=== PATIENT | female | born 1985 ===

== ENCOUNTER 2018-05-11 23:30 | Inpatient (IN) | payer OTHER ==
--- NOTE | 2018-05-12 00:33 | OBADHP ---
Datetime: 05/12/2018 00:26 Admit Comment, IP Provider: A/P: 32 yo at 39 wks with EDC 05/19/18 SROM - stable, afebrile - GBS + - for Louise - + pooling and nitrazine - expectant mgmt FHR - Baseline A Provider: 140 Amniotic Fluid Color, Provider: Clear Membranes, Provider: Ruptured Contraction Comments Provider: 4-5 Pool Provider: Positive Nitrazine Provider: Positive Vital Signs Provider: Reviewed; Within Normal Limits IP Chief Complaint: Uterine contractions; Suspected ruptured membranes NICHD Variability Prov Fetus A: Moderate 6-25bpm NICHD Accel Fetus A IP Provider: 15X15 FHR Category Provider Fetus A: Category I NICHD Decel Fetus A IP Provider: None Dilatation, Provider: 2 Effacement, Provider: 80 Station, Provider: 0 EGA AdmitDate IP: 39.0 IP Adm Impression: Ruptured Membranes IP Admit Plan: Admit to unit; Initiate labor protocol
[2018-05-12 00:35] VITALS: BMI 20.3
[2018-05-12] MEDS ORDERED: Lactated Ringer's 1,000 ML IV ONE (00:46)
[2018-05-12] MEDS: Lactated Ringer's 1,000 ML IV SCH ×2 (01:00→10:50)
[2018-05-12 01:09] LABS: BASO % 0.3 % (0.0-2.0); EOS # 0.3 K/uL (0.0-0.7); EOS % 3.2 % (0.0-4.0); HEMOGLOBIN 12.4 g/dL (11.0-16.0); LYMPH # 1.9 K/uL (1.0-4.3); LYMPH % 17.9 % (20.0-40.0); MEAN CELL VOLUME 87.1 fL (81.0-99.0); MEAN CORPUSCULAR HEMOGLOBIN 28.7 pg (27.0-31.0); MEAN PLATELET VOLUME 10.9 fL (7.2-11.7); MONO # 0.9 K/uL (0.0-0.8); MONO % 8.4 % (0.0-10.0); NEUT # 7.3 K/uL (1.8-7.0); NEUT % 70.2 % (50.0-75.0); RBC 4.33 Mil/uL (3.80-5.20); RED CELL DISTRIBUTION WIDTH 14.6 % (11.5-14.5); WHITE BLOOD COUNT 10.4 K/uL (4.8-10.8)
[2018-05-12] MEDS ORDERED: Penicillin G 5 Million Unit Vial IVPB ONE (01:30)
[2018-05-12] MEDS ORDERED: Oxytocin 30 UNIT 30 UNITS/500 ML BAG IV SCH (09:00)
[2018-05-12] MEDS ORDERED: Oxytocin 30 UNIT 30 UNITS/500 ML BAG IV ONE (09:28)
[2018-05-12] MEDS ORDERED: Nalbuphine HCL 10 mg/ml Ampule IVP ONE (09:29)
[2018-05-12] MEDS ORDERED: DiphenhydrAMINE 50 mg/ml Inj IM ONE (09:30)
[2018-05-12] MEDS ORDERED: Nalbuphine HCL 10 mg/ml Ampule ONE (09:35)
[2018-05-12] MEDS ORDERED: DiphenhydrAMINE 50 mg/ml Inj ONE (09:36)
[2018-05-12] MEDS ORDERED: DiphenhydrAMINE 50 mg/ml Inj IVP ONE (09:50)
--- NOTE | 2018-05-12 13:56 | OBPN ---
Datetime: 05/12/2018 13:54 IP Progress Impression: Normal progression of labor IP Procedures: Sterile Vag Exam IP Progress Plan: Continue present management Contraction Comments Provider: q1-4 FHR - Baseline A Provider: 130 IP Progress Note Comment: pt was examined at bed gildardo ve 3-4/80/-1 cont pitocn anticipate Vital Signs Provider: Reviewed; Within Normal Limits NICHD Accel Fetus A IP Provider: 15X15 FHR Category Provider Fetus A: Category I NICHD Variability Prov Fetus A: Moderate 6-25bpm Dilatation, Provider: 4 Effacement, Provider: 80 Station, Provider: -1 Datetime: 05/12/2018 00:26 Pool Provider: Positive Nitrazine Provider: Positive Membranes, Provider: Ruptured Amniotic Fluid Color, Provider: Clear NICHD Decel Fetus A IP Provider: None
[2018-05-12] MEDS ORDERED: Fentanyl/Bupivacaine HCl 250 ML EPI ONE (14:14)
--- NOTE | 2018-05-12 20:27 | OBPN ---
Datetime: 05/12/2018 20:22 IP Progress Impression: Normal progression of labor IP Progress Plan: Continue present management; Anticipate Vaginal Delivery Membranes, Provider: Ruptured Contraction Comments Provider: q 3 min FHR - Baseline A Provider: 160 Gestation - Est Wks by US: 39.0 Presentation-Admit: Vertex IP Progress Note Comment: pt seen adn examien drperots pressure and pushing vss ve; 10/100/+1 a/p @ 39 wks n labor cont pushing antice Vital Signs Provider: Reviewed; Within Normal Limits NICHD Variability Prov Fetus A: Moderate 6-25bpm Dilatation, Provider: 10 Effacement, Provider: 100 Station, Provider: 1 NICHD Decel Fetus A IP Provider: Variable
[2018-05-12] MEDS ORDERED: Oxycodone/Acetaminophen 5/325 mg Tab PO PRN ×2 (21:01)
--- NOTE | 2018-05-12 21:08 | OBDS ---
DELIVERY PERSONNEL Delivery Doctor: Falguni Orosco MD Scrub Nurse: Camille Davis OBT MATERNAL INFORMATION Delivery Anesthesia: Epidural Estimated Blood Loss (ml): 300 Placenta Cultured: Yes Maternal Complications: None Provider Comments: pt was f ully dilated and pushing. atrumatic, spontenaous deliveyr of head in judy position, no nuchal cord noted. atrumat,c spontanoeus delivery of anterior followed by posterior benji ulder followed by delivery of the body. both oral and nasal passages of the baby were bulb suctioned. umbicls cord was clamped adn cut. baby was handed to mother on abdomen with rn assistance. Cord bloo d adn cord gases collected and sent x 2. spontaneous delivery of intact placenta with membranes. fun dus firm. good hemostasis no complications. second degree perineal laceration noted adn repaired wit h 2-0 chromic, good hemostasis, no complcations live female infant ebl 300 ml apgars 9,9 cooper helper present for delivery LABOR SUMMARY EDC: 05/19/2018 00:00 No. Babies in Womb: 1 Attempted: No Labor Anesthesia: Epidural LABOR INFORMATION Complete Dilatation: 05/12/2018 18:00 Oxytocin: Augmentation Group B Beta Strep: Positive Antibiotics # of Doses: 5 Antibiotics Time of Last Dose: 05/12/18 @ 1820 Steroids Given: None Reason Steroids Not Administered: Not Applicable MEMBRANES Membranes Rupture Method: Spontaneous Rupture of Membranes: 05/11/2018 23:00 Length of Rupture (hrs): 21.68 Amniotic Fluid Color: Clear Amniotic Fluid Amount: None (Annotations: underpads clean and dry) Amniotic Fluid Odor: None STAGES OF LABOR Stage 2 hrs: 2 Stage 2 min: 41 VAGINAL DELIVERY Laceration Extension: Second Degree Laceration Type: Perineal Laceration Repair: Yes Laceration Repair Note: second degree perienal laceration Initial Vag Sponge Count: 10 Final Vag Sponge Count: 10 Initial Vag Sharps Count: 2 Final Vag Sharps Count: 2 Sponge Count Correct: Yes Sharps Count Correct: Yes BABY A INFORMATION Infant Delivery Date/Time: 05/12/2018 20:41 Method of Delivery: Vaginal Born in Route : No : N/A Forceps: N/A Vacuum Extraction: N/A Shoulder Dystocia : No SHOULDER DYSTOCIA BABY A Infant Delivery Date/Time: 05/12/2018 20:41 PRESENTATION/POSITION BABY A Presentation: Cephalic Cephalic Presentation: Vertex SCORES BABY A Heart Rate 1 min: >100 bpm Resp Effort 1 min: Good Cry Reflex Irritability 1 min: Cough or Sneeze or Pulls Away Muscle Tone 1 min: Active Motion Color 1 min: Body Crewe, Extremities Blue SCORE 1 MIN: 9 Heart Rate 5 min: >100 bpm Resp Effort 5 min: Good Cry Reflex Irritability 5 min: Cough or Sneeze or Pulls Away Muscle Tone 5 min: Active Motion Color 5 min: Body Crewe, Extremities Blue SCORE 5 MIN: 9 INFORMATION BABY A Gestational Age at Delivery: 39.0 Gestational Status: Term Infant Outcome : Liveborn Infant Condition : Stable Infant Sex: Female IDENTIFICATION/MEDS BABY A ID Band Number: [id number] ID Band Location: Left Leg; Left Arm Sensor Applied: Yes Sensor Number: [id number] Sensor Location : Cord Clamp Vitamin K Given : Aquamephyton 1 mg IM; Left Thigh Erythromycin Given: Given Both Eyes WEIGHT/LENGTH BABY A Birthweight (gms): 2645 Infant Weight (lb): 5 Infant Weight (oz): 13 Infant Length Inches: 18.50 Infant Length cms: 47.0 CORD INFORMATION BABY A No. Cord Vessels: 3 Nuchal Cord : N/A Cord Blood Taken: Yes Suction: Mouth ASSESSMENT BABY A Complications: None Physical Findings at Delivery: Within Normal Limits Infant Respirations: Appears Normal Wireless Manager/ALS Called : No Care By: BELÉN MARQUEZ/DR. Baker Transferred To: Remains with Mother
[2018-05-12] MEDS: AMPicillin 2 GM in Sodium Chloride 100 ML IVPB SCH (21:26)
[2018-05-13] MEDS: Benzocaine/Menthol 20%-0.5% Topical Spray (60 ml) TOP PRN (01:19)
[2018-05-13] MEDS: AMPicillin 2 GM in Sodium Chloride 100 ML IVPB SCH ×3 (02:56→15:16)
[2018-05-13 07:29] LABS: BASO % 0.3 % (0.0-2.0); EOS # 0.1 K/uL (0.0-0.7); EOS % 0.4 % (0.0-4.0); LYMPH # 1.3 K/uL (1.0-4.3); LYMPH % 8.6 % (20.0-40.0); MEAN CELL VOLUME 87.4 fL (81.0-99.0); MEAN CORPUSCULAR HEMOGLOBIN 28.7 pg (27.0-31.0); MEAN CORPUSCULAR HGB CONC 32.8 g/dL (33.0-37.0); MEAN PLATELET VOLUME 10.7 fL (7.2-11.7); MONO % 6.8 % (0.0-10.0); NEUT # 12.5 K/uL (1.8-7.0); NEUT % 83.9 % (50.0-75.0); PLATELET COUNT 130 K/uL (130-400); RBC 3.84 Mil/uL (3.80-5.20); RED CELL DISTRIBUTION WIDTH 14.9 % (11.5-14.5); WHITE BLOOD COUNT 14.9 K/uL (4.8-10.8)
[2018-05-13 08:39] LABS: LYMPHOCYTE 10 % (20-40); MONOCYTE 7 % (0-10); NEUTROPHIL 82 % (50-75); PLATELET ESTIMATE NORMAL (NORMAL); REACTIVE LYMPHOCYTES 1 % (0-0); TOTAL CELLS COUNTED 100
[2018-05-14 07:41] LABS: BASO # 0.1 K/uL (0.0-0.2); BASO % 0.6 % (0.0-2.0); EOS # 0.3 K/uL (0.0-0.7); EOS % 2.5 % (0.0-4.0); HEMOGLOBIN 10.9 g/dL (11.0-16.0); LYMPH # 1.9 K/uL (1.0-4.3); LYMPH % 17.7 % (20.0-40.0); MEAN CELL VOLUME 88.7 fL (81.0-99.0); MEAN CORPUSCULAR HEMOGLOBIN 29.1 pg (27.0-31.0); MEAN CORPUSCULAR HGB CONC 32.8 g/dL (33.0-37.0); MEAN PLATELET VOLUME 10.6 fL (7.2-11.7); MONO # 0.9 K/uL (0.0-0.8); MONO % 8.3 % (0.0-10.0); NEUT # 7.7 K/uL (1.8-7.0); NEUT % 70.9 % (50.0-75.0); RBC 3.73 Mil/uL (3.80-5.20); RED CELL DISTRIBUTION WIDTH 14.9 % (11.5-14.5); WHITE BLOOD COUNT 10.8 K/uL (4.8-10.8)
--- NOTE | 2018-05-14 07:53 | CP.PCM.PN ---
Subjective - Date & Time of Evaluation Date of Evaluation: 05/13/18 Time of Evaluation: 07:30 - Subjective Subjective: Jhonny Christianson DO, PGY-1 Bottom Turning Lathe Tender Progress Note for Dr. Jordyn Orosco Patient was seen and examined at bedside this AM. She reports mild intermittent cramping but denies nausea/vomiting. She reports flatus but has not had BM yet. She is currently breast feeding without too much difficulty. Objective - Vital Signs/Intake and Output Vital Signs (last 24 hours): Temp Pulse Resp BP Pulse Ox 98.2 F 82 20 103/73 99 05/14/18 00:00 05/14/18 00:00 05/14/18 00:00 05/14/18 00:00 05/14/18 00:00 - Medications Medications: Current Medications Acetaminophen (Tylenol 325mg Tab) 650 mg PO Q6 PRN PRN Reason: Pain, Mild (1-3) Benzocaine/Menthol (Dermoplast 20%-0.5%) 0 ml TOP Q6 PRN PRN Reason: Perineal Discomfort Last Admin: 05/13/18 01:19 Dose: 1 ml Docusate Sodium (Colace) 100 mg PO BID [facility] Last Admin: 05/13/18 18:24 Dose: 100 mg Lactated Ringer's (Lactated Ringer's) 1,000 mls @ 125 mls/hr IV .Q8H [facility] Last Admin: 05/12/18 10:50 Dose: 125 mls/hr Oxytocin (Pitocin) 30 units in 500 mls @ 1 mls/hr IV .Q24H [facility]; Protocol Last Admin: 05/12/18 10:00 Dose: 1 mls/hr Ibuprofen (Motrin Tab) 600 mg PO Q6 PRN PRN Reason: Pain, Mild (1-3) Last Admin: 05/14/18 00:12 Dose: 600 mg Oxycodone/Acetaminophen (Percocet 5/325 Mg Tab) 1 tab PO Q4H PRN PRN Reason: Pain, moderate (4-7) Stop: 05/15/18 21:02 Oxycodone/Acetaminophen (Percocet 5/325 Mg Tab) 2 tab PO Q4H PRN PRN Reason: Pain, severe (8-10) Stop: 05/15/18 21:02 Sennosides (Senokot Tab) 17.2 mg PO DAILY [facility] Last Admin: 05/13/18 09:03 Dose: 17.2 mg - Labs Labs: 05/14/18 07:31 - Constitutional Appears: Non-toxic, No Acute Distress - Head Exam Head Exam: ATRAUMATIC, NORMOCEPHALIC - Eye Exam Eye Exam: EOMI, Normal appearance, PERRL - ENT Exam ENT Exam: Mucous Membranes Moist - Neck Exam Neck Exam: Full ROM, Normal Inspection - Respiratory Exam Respiratory Exam: Clear to Ausculation Bilateral, NORMAL BREATHING PATTERN. absent: Rales, Rhonchi, Wheezes - Cardiovascular Exam Cardiovascular Exam: REGULAR RHYTHM, RRR, +S1, +S2. absent: Gallop, Rubs, Murmur - GI/Abdominal Exam GI & Abdominal Exam: Soft, Hypoactive Bowel Sounds - Extremities Exam Extremities Exam: Full ROM, Normal Inspection - Back Exam Back Exam: Full ROM, NORMAL INSPECTION - Neurological Exam Neurological Exam: Alert, Awake, Oriented x3 - Psychiatric Exam Psychiatric exam: Normal Affect, Normal Mood - Skin Skin Exam: Dry, Intact, Warm Assessment and Plan - Assessment and Plan (Free Text) Assessment: 32 yo F now is s/p yesterday. Plan: Patient is tolerating diet well without abdominal pain/nausea/vomiting Continue PRN pain management for intermittent cramps Continue bowel regimen with colace/senekot Breast feeding education PRN Continue to monitor overnight in post- unit Case and plan discussed with Dr. Jordyn Christianson, DO IM Resident PGY-1
--- NOTE | 2018-05-14 07:58 | CP.PCM.PN ---
Subjective - Date & Time of Evaluation Date of Evaluation: 05/14/18 Time of Evaluation: 07:56 - Subjective Subjective: Jhonny Christianson DO, PGY-1 Ad Writer Progress Note for Dr. Jordyn Orosco Patient was seen and examined at bedside this AM. She reports only intermittent cramps and denies nausea/vomiting. She is tolerating breast feeding well. She re ports having BM yesterday evening. Objective - Vital Signs/Intake and Output Vital Signs (last 24 hours): Temp Pulse Resp BP Pulse Ox 98.2 F 82 20 103/73 99 05/14/18 00:00 05/14/18 00:00 05/14/18 00:00 05/14/18 00:00 05/14/18 00:00 - Medications Medications: Current Medications Acetaminophen (Tylenol 325mg Tab) 650 mg PO Q6 PRN PRN Reason: Pain, Mild (1-3) Benzocaine/Menthol (Dermoplast 20%-0.5%) 0 ml TOP Q6 PRN PRN Reason: Perineal Discomfort Last Admin: 05/13/18 01:19 Dose: 1 ml Docusate Sodium (Colace) 100 mg PO BID [facility] Last Admin: 05/13/18 18:24 Dose: 100 mg Lactated Ringer's (Lactated Ringer's) 1,000 mls @ 125 mls/hr IV .Q8H [facility] Last Admin: 05/12/18 10:50 Dose: 125 mls/hr Oxytocin (Pitocin) 30 units in 500 mls @ 1 mls/hr IV .Q24H [facility]; Protocol Last Admin: 05/12/18 10:00 Dose: 1 mls/hr Ibuprofen (Motrin Tab) 600 mg PO Q6 PRN PRN Reason: Pain, Mild (1-3) Last Admin: 05/14/18 00:12 Dose: 600 mg Oxycodone/Acetaminophen (Percocet 5/325 Mg Tab) 1 tab PO Q4H PRN PRN Reason: Pain, moderate (4-7) Stop: 05/15/18 21:02 Oxycodone/Acetaminophen (Percocet 5/325 Mg Tab) 2 tab PO Q4H PRN PRN Reason: Pain, severe (8-10) Stop: 05/15/18 21:02 Sennosides (Senokot Tab) 17.2 mg PO DAILY [facility] Last Admin: 05/13/18 09:03 Dose: 17.2 mg - Labs Labs: 05/14/18 07:31 - Constitutional Appears: Non-toxic, No Acute Distress - Head Exam Head Exam: ATRAUMATIC, NORMOCEPHALIC - Eye Exam Eye Exam: EOMI, Normal appearance, PERRL - ENT Exam ENT Exam: Mucous Membranes Moist - Neck Exam Neck Exam: Full ROM, Normal Inspection - Respiratory Exam Respiratory Exam: Clear to Ausculation Bilateral, NORMAL BREATHING PATTERN. absent: Rales, Rhonchi, Wheezes - Cardiovascular Exam Cardiovascular Exam: REGULAR RHYTHM, RRR, +S1, +S2. absent: Gallop, Rubs, Murmur - GI/Abdominal Exam GI & Abdominal Exam: Soft, Normal Bowel Sounds. absent: Tenderness - Extremities Exam Extremities Exam: Full ROM, Normal Inspection - Back Exam Back Exam: Full ROM, NORMAL INSPECTION - Neurological Exam Neurological Exam: Alert, Awake, Oriented x3 - Psychiatric Exam Psychiatric exam: Normal Affect, Normal Mood - Skin Skin Exam: Dry, Intact, Warm Assessment and Plan - Assessment and Plan (Free Text) Assessment: 32 yo F now is s/p on 05/12/18. Plan: Patient is tolerating diet well without abdominal pain/nausea/vomiting BM yesterday evening Continue PRN pain management for intermittent cramps Breast feeding education PRN Plan for discharge home today Case and plan discussed with Dr. Jordyn Christianson, IM Resident PGY-1
[2018-05-14] MEDS: Benzocaine/Menthol 20%-0.5% Topical Spray (60 ml) TOP PRN (17:32)
--- NOTE | 2018-05-14 22:09 | OBPPN ---
Datetime: 05/14/2018 21:49 PP Pain Prov: Within normal limits PP Nausea Prov: Denies PP Flatus Prov: Yes PP Breasts Prov: Normal PP Heart Prov: Normal PP Lungs Prov: Normal PP Abdomen/Uterus Prov: Normal PP Lochia Prov: Normal PP Vulva/Perineum Prov: Normal PP CVA Tenderness Prov: Normal PP Extremities Prov: Normal PP C/S Incision Prov: Not Applicable PP Progress Prov: Normal PP Comments Phys Exam Prov: gen nad hannah x 3 resp; ctab/l cvs rrr, +S1/S2 ABD: ttp over fundus, no guaridn no reboud tennder no rgidty ve; minaml lcoha, non couls emlseing ext n calf tender tendereness PP Impression Prov: Normal progression; Endometritis PP Plan Prov: Continue present management; Antibiotic therapy PP Progress Note Prov: pt seen and examiend with pain over incicosn . pt with fever yesterday deneis chills, aues vojting VS see aobve PE see aobve a/p s/p NDV PPD #2 with endometritis cont abx cbc pain magnetn encouarge breat feeidn admabiaotn antic dc in am Vital Signs Provider PP: Reviewed
[2018-05-15 00:41] VITALS: O2SAT 98
[2018-05-15] MEDS ORDERED: Influenza Vaccine 60 MCG/0.5 ML SYR (3 yr & up) IM ONE (11:58)
--- NOTE | 2018-05-15 15:05 | OBPPN ---
Datetime: 05/15/2018 15:00 PP Pain Prov: Within normal limits PP Nausea Prov: Denies PP Flatus Prov: Yes PP Breasts Prov: Normal PP Heart Prov: Normal PP Lungs Prov: Normal PP Abdomen/Uterus Prov: Normal PP Lochia Prov: Normal PP Vulva/Perineum Prov: Normal PP CVA Tenderness Prov: Normal PP Extremities Prov: Normal PP C/S Incision Prov: Not Applicable PP Progress Prov: Normal PP Impression Prov: Normal progression; Endometritis PP Plan Prov: Discharge PP Plan Other Prov: s/p anbitiocs PP Progress Note Prov: pt seen and examiened. pt preorts pain is contlrled iwht medicin pt is ambuai tng, ovidng, passing flats, tolerated reuglar diet, dnei say nausea, vomiting, chest pain, sob, dizzy ness, heavy vaginal bleeding. Pt preorts feeling better VSS PE GEN NAD AAO X 3 BREAST: non engorged b/l, non tender RESP: CTab/l CVS: RRR, +S1/S2 ABD: Soft, NT/ND, +BS FUNDUS: Firm below level of umbilcus, no uterine tenderness VE: miniimla lochia no foul odor EXT: no calf tenderness, negative samuel's sign A/P s/p PPD #3 with endometritis reolsved dc home rto 6 weeks precauitn given Vital Signs Provider PP: Reviewed; Within Normal Limits
--- NOTE | 2018-05-15 15:05 | OBDCSUM ---
Datetime: 05/15/2018 12:33 Discharged to, Provider: Home Follow up at, Provider: [facility] Activity: Normal activity Disch Instr Diet: Regular Discharge Diagnosis, Provider: Term Delivered Discharge Time: 05/15/2018 14:20 Follow up in weeks, Provider: 6 weeks Disch Referrals: None Disch Activity Restrictions: No lifting; Minimize stair-climbing; No sexual activity; Nothing in vag ashli - [place], tampons, douche Discharge Comment, Provider: hector vasquez
[2018-05-15 18:50] VITALS: BP 103/55; PULSE 75; RESP 18; TEMP 97.8
== END 2018-05-15 14:20 | disposition home or self-care (01) | DRG 807 ==
LOC: C.EROB 23:30 → C.4D 05-12 00:25 → C.4M 05-12 23:00
PROVIDERS: ADMIT Obstetrics & Gynecology; ATTEND Obstetrics & Gynecology
PROC: 0KQM0ZZ Repair Perineum Muscle, Open Approach (ICD-10-PCS; principal; 2018-05-12)
PROC: 10E0XZZ Delivery of Products of Conception, External Approach (ICD-10-PCS; 2018-05-12)
DX: O99.824 Streptococcus B carrier state complicating childbirth (principal); O70.1 Second degree perineal laceration during delivery; Z3A.39 39 weeks gestation of pregnancy; O75.3 Other infection during labor; Z37.0 Single live birth